=== PATIENT | male | born 1995 | race Hispanic/Latino ===

== ENCOUNTER 2016-11-21 15:39 | Emergency (ER) | payer OTHER ==
[~2016-11-21] VITALS: Ht 167.6 cm; Wt 72.5 kg
--- NOTE | 2016-11-21 16:27 | Diagnostic Imaging Report ---
INDICATION: Nail penetrated through lateral aspect of wrist. FINDINGS: Three views show no fracture or dislocation. The articulating surfaces are smooth. No radiopaque foreign bodies are noted. IMPRESSION: Normal left wrist. Dictated by: Dictated on workstation # [id number]
[2016-11-21] MEDS ORDERED: TETANUS, DIPTHERIA, PERTUSSIS (ADACELL) VACCINE 0.5 ML VIAL IM ONE (16:35)
--- NOTE | 2016-11-21 16:51 | NUR ---
UDS DONE PER RENDERING [employer]MENT [employer] OF [employer]OG[employer]BDI
[2016-11-21 17:09] VITALS: BP 154/86
== END 2016-11-21 17:09 | disposition home or self-care (01) ==
LOC: ED 15:43
DX: S61.532A Puncture wound without foreign body of left wrist, initial encounter (principal); W22.8XXA Striking against or struck by other objects, initial encounter; Y93.89 Activity, other specified; Y92.513 Shop (commercial) as the place of occurrence of the external cause; Y99.0 Civilian activity done for income or pay
CPT/HCPCS: 73110; 90471; 90715; 99282; 99283

== ENCOUNTER → 2016-11-21 | Outpatient (REF) | payer OTHER | LOC: EUOP 16:44 | PROVIDERS: ATTEND Emergency Medicine | DX: Z02.89 Encounter for other administrative examinations (principal); Z02.83 Encounter for blood-alcohol and blood-drug test ==